=== PATIENT | female | born 1995 | race Caucasian/White ===

== ENCOUNTER 2020-12-14 13:45 | Emergency (ER) | payer BC ==
--- NOTE | 2020-12-14 13:59 | EDM.PDOC ---
ED HPI GENERAL MEDICAL PROBLEM - General Chief Complaint: General Stated Complaint: POSSIBLE SINUS INFECTION Time Seen by Provider: 12/14/20 14:05 Source of Information: Reports: Patient History Limitations: Reports: No Limitations - History of Present Illness INITIAL COMMENTS - FREE TEXT/NARRATIVE: This is a 25 year old female presenting with sinus pressure and pain. Patient re ports that she developed nasal congestion and what she thought was a cold 5 days ago. She reports that she has developed progressively worsened sinus pressure and facial pain. She reports significant nasal congestion and feels like she can't breathe out of her nose. She reports a slight cough, but denies chest pain or SOB. No sore throat. She does report that she thinks she developed a fever yesterday - she felt chilled and generally unwell and took a tylenol and about 30 minutes later her symptoms were improved. She does admit that several family members are ill with similar symptoms. She denies exposure to COVID and is fully vaccinated against COVID. Face/Facial Pain Score (Numeric/FACES): 4 - Related Data Allergies Allergy/AdvReac Type Severity Reaction Status Date / Time No Known Allergies Allergy Verified 12/14/20 14:01 Home Meds: Home Meds Amoxicillin/Potassium Clav [Augmentin 875-125 Tablet] 1 each PO BID 10 Days #20 tablet 12/14/20 [Rx] norgestimate-ethinyl estradioL [Vig-Oh-Cwvarznb Tablet] 1 each PO DAILY 12/14/20 [History] ED ROS GENERAL - Review of Systems Review Of Systems: Comprehensive ROS is negative, except as noted in HPI. ED EXAM, GENERAL - Physical Exam Exam: See Below Exam Limited By: No Limitations General Appearance: Alert, No Apparent Distress Eye Exam: Bilateral Eye: PERRL Ears: Normal External Exam, Normal Canal, Hearing Grossly Normal, Normal TMs Nose: Other (nasal mucosa edematous bilaterally) Throat/Mouth: Normal Inspection, Normal Oropharynx, Normal Voice, Other (no posterior oropharyngeal edema or erythema. no tonsillar enlargement or exudates. uvula is midline.) Head: Atraumatic, Normocephalic Neck: Supple, Non-Tender, Full Range of Motion. No: Lymphadenopathy (R), Lymphadenopathy (L) Respiratory/Chest: No Respiratory Distress, Lungs Clear, Normal Breath Sounds, No Accessory Muscle Use Cardiovascular: Regular Rate, Rhythm GI/Abdominal: Soft, Non-Tender Extremities: Normal Inspection, Normal Range of Motion Neurological: Alert, Oriented, CN II-XII Intact, Normal Cognition Psychiatric: Normal Affect, Normal Mood Skin Exam: Warm, Dry, No Rash Lymphatic: No Adenopathy Course - Vital Signs Last Recorded V/S: Last Vital Signs Temp 97.3 F 12/14/20 14:05 Pulse 77 12/14/20 14:05 Resp 16 12/14/20 14:05 BP 144/89 H 12/14/20 14:05 Pulse Ox 97 12/14/20 14:05 Departure - Departure Time of Disposition: 14:28 Disposition: Home, Self-Care 01 Clinical Impression: Acute bacterial sinusitis - Discharge Information Prescriptions: Amoxicillin/Potassium Clav [Augmentin 875-125 Tablet] 1 each PO BID 10 Days #20 tablet Instructions: Sinusitis, Adult Referrals: PCP,None [Primary Care Provider] - Forms: ED Department Discharge Additional Instructions: Take the antibiotics as prescribed. You can also continue to use over the counter oral decongestants. You can also use over the counter oxymetazoline (brand name Afrin) nasal spray as directed on the package and fluticasone (brand name Flonase) nasal spray. Sepsis Event Note (ED) - Focused Exam Vital Signs: Vital Signs Temp Pulse Resp BP Pulse Ox 12/14/20 14:05 97.3 F 77 16 144/89 H 97 - Problem List Review Problem List Initiated/Reviewed/Updated: Yes - Assessment/Plan Assessment:: This is a 25 year old female presenting with sinus pressure and facial pain. History and exam are consistent with sinusitis. There is no evidence of otitis media or strep pharyngitis. Low suspicion for COVID or pneumonia. No evidence of complications of sinusitis at this time. Given the severity of her symptoms and the presence of a fever, antibiotics are indicated. She will be discharged with a course of Augmentin. I recommended she use over the counter and nasal decongestants as well as flonase. she will follow up with PCP in 3-4 days if not improving.
== END 2020-12-14 14:38 | disposition home or self-care (01) ==
LOC: JP.ED 13:45
DX: J01.90 Acute sinusitis, unspecified (principal); B96.89 Other specified bacterial agents as the cause of diseases classified elsewhere
CPT/HCPCS: 99283